=== PATIENT | male | born 1965 | race Two or more races ===

== ENCOUNTER 2021-01-07 06:32 | Day surgery (SDC) | payer OTHER ==
[~2021-01-07] VITALS: Ht 172.7 cm; Wt 93.0 kg
[~2021-01-07 06:32] MED LIST: NEURONTIN600 M1 PO; ONGLYZA2.5 MG PO; ULTRAM50 MG PO
[2021-01-07] MEDS ORDERED: MEDROLPACK PO (09:49)
[2021-01-07] MEDS ORDERED: AMOX-CLAV 875-1 EACH PO (09:49)
[2021-01-07] MEDS ORDERED: NEURONTIN800 MG PO (09:49)
[2021-01-07] MEDS ORDERED: PERCOCET 5-3251 EACH PO (09:49)
[2021-01-07] MEDS ORDERED: COLACE100 MG PO (09:49)
== END 2021-01-07 17:40 | disposition home or self-care (01) ==
LOC: O/R 06:32 → SURH 06:32 → CIR.AMB 06:32 → EDSTATUS 10:15 → LDR 10:15 → SURH 10:15 → O/R 14:27 → SURH 16:52 → O/R 16:52 → CIR.AMB 17:40
PROVIDERS: ATTEND Orthopaedic Surgery Orthopaedic Surgery of the Spine
DX: M51.26 Other intervertebral disc displacement, lumbar region (principal); M51.27 Other intervertebral disc displacement, lumbosacral region